=== PATIENT | female | born 1985 | race Hispanic/Latino ===

== ENCOUNTER 2019-01-04 17:58 | Emergency (ER) | payer MEDICAID ==
[2019-01-04 18:12] VITALS: BP 109/72
--- NOTE | 2019-01-04 18:12 | Event Note ---
ED Screening Note Date of service: 01/04/19 Time: 18:10 ED Screening Note: 33 y o female presents with left knee pain s/p fell down 3 steps while at work no loc no head injury This initial assessment/diagnostic orders/clinical plan/treatment(s) is/are subject to change based on patients health status, clinical progression and re- assessment by fellow clinical providers in the ED. Further treatment and workup at subsequent clinical providers discretion. Patient/guardian urged not to elope from the ED as their condition may be serious if not clinically assessed and managed. Initial orders include: xr knee
--- NOTE | 2019-01-04 19:07 | Emergency Department Report ---
ED Lower Extremity HPI - General Chief Complaint: Extremity Injury, Lower Stated Complaint: LT KNEE PAIN Time Seen by Provider: 01/04/19 18:10 Source: patient Mode of arrival: Ambulatory Limitations: No Limitations - History of Present Illness Initial Comments: 33-year-old female presents to the emergency room for complaint of left knee pain status post fall today. Patient states that about 521 today at work she had fallen and landed on her right knee with her left knee extended. Patient reports that she did not hit her head but does have a headache. Patient reports that she can't move her left knee bended. Patient reports a past medical history of left knee surgery in 2003 and had injured her knee in 2013. Patient currently takes no medications on a daily basis. Patient does have an allergy to codeine. -: This evening Time: 17:20 Injury: Knee: Left Type of Injury: hyperextension Place: work Severity scale (0 -10): 10 Improves With: nothing Worsens With: weight bearing, movement, palpation Context: fall Associated Symptoms: swelling, unable to bear weight - Related Data Previous Rx's Medication Instructions Recorded Last Taken Type Ibuprofen [Motrin 600 MG tab] 600 mg PO Q8H PRN #30 tablet 01/04/19 Unknown Rx Allergies Allergy/AdvReac Type Severity Reaction Status Date / Time codeine Allergy Anaphylaxis Verified 01/04/19 18:06 ED Review of Systems ROS: Stated complaint: LT KNEE PAIN Other details as noted in HPI Comment: All other systems reviewed and negative ED Past Medical Hx - Past Medical History Previous Medical History?: No - Surgical History Past Surgical History?: Yes Additional Surgical History: left knee/2013, ovarian cyst - Social History Smoking Status: Never Smoker Substance Use Type: Alcohol - Medications Home Medications: Home Medications Medication Instructions Recorded Confirmed Last Taken Type Ibuprofen [Motrin 600 MG tab] 600 mg PO Q8H PRN #30 tablet 01/04/19 Unknown Rx ED Physical Exam - General Limitations: No Limitations General appearance: alert, in no apparent distress - Head Head exam: Present: atraumatic, normocephalic - Eye Eye exam: Present: normal appearance - ENT ENT exam: Present: mucous membranes moist - Neck Neck exam: Present: normal inspection, full ROM - Expanded Lower Extremity Exam Left Hip exam: Present: normal inspection Upper Leg exam: Present: normal inspection Knee exam: Present: tenderness, swelling. Absent: full ROM Lower Leg exam: Present: normal inspection. Absent: tenderness, swelling Right Knee exam: Present: full ROM, tenderness, ecchymosis, erythema Ankle exam: Present: normal inspection Foot/Toe exam: Present: normal inspection Neuro vascular tendon exam: Present: no vascular compromise - Neurological Exam Neurological exam: Present: alert, oriented X3 - Psychiatric Psychiatric exam: Present: normal affect, normal mood - Skin Skin exam: Present: warm, dry, intact, normal color. Absent: rash ED Course Vital Signs 01/04/19 18:10 Temperature 98.3 F Pulse Rate 77 Respiratory 18 Rate Blood Pressure 109/72 O2 Sat by Pulse 99 Oximetry ED Lower Extremity MDM - Radiology Data Radiology results: report reviewed Patient: KOBE TREJO MR#: [id number] 7 : 1985 Acct:[id number] Age/Sex: 33 / F ADM Date: 01/04/19 Loc: ED Attending Dr: Ordering Physician: LEEANNE JONES Date of Service: 01/04/19 Procedure(s): XR knee 3V LT Accession Number(s): [id number] cc: LEEANNE JONES Fluoro Time In Minutes: LEFT KNEE 3 VIEWS INDICATION / CLINICAL INFORMATION: Left knee pain. COMPARISON: None available. FINDINGS: BONES and JOINT(S): No acute fracture or subluxation. No significant arthritis. SOFT TISSUES: No significant abnormality. ADDITIONAL FINDINGS: None. IMPRESSION: No acute abnormality of the left knee. Signer Name: Polo Stewart MD Signed: 01/04/2019 7:28 PM Workstation Name: [id number] Transcribed By: [place] Dictated By: Polo Stewart MD Electronically Authenticated By: Polo Stewart MD Signed Date/Time: 01/04/191927 DD/ 26 TD/TT: - Medical Decision Making 33-year-old female presents to the emergency room for complaint of left knee pain status post fall today. Patient states that about 521 today at work she had fallen and landed on her right knee with her left knee extended. Patient reports that she did not hit her head but does have a headache. Patient reports that she can't move her left knee bended. Patient reports a past medical history of left knee surgery in 2003 and had injured her knee in 2013. Patient currently takes no medications on a daily basis. Patient does have an allergy to codeine. Plain x-ray left knee shows no acute fracture or abnormalities. Patient will be referred to orthopedic provider for further evaluation and studies. Patient be placed in a knee immobilizer and crutches. Discharge home on ibuprofen. Critical care attestation.: If time is entered above; I have spent that time in minutes in the direct care of this critically ill patient, excluding procedure time. ED Disposition Clinical Impression: Left knee injury Qualifiers: Encounter type: initial encounter Qualified Code(s): S89.92XA - Unspecified injury of left lower leg, initial encounter Disposition: TO HOME OR SELFCARE Is pt being admited?: No Does the pt Need Aspirin: No Condition: Stable Instructions: Knee Immobilizer (ED) Additional Instructions: Please wear knee immobilizer and take pain medication until you follow up with orthopedic provider. Please use crutches to help ambulate. Prescriptions: Ibuprofen [Motrin 600 MG tab] 600 mg PO Q8H PRN #30 tablet PRN Reason: Pain , Severe (7-10) Referrals: KEVIN SALAS MD [Staff Physician] - 3-5 Days ALISA PRADO MD [Staff Physician] - 3-5 Days Forms: Work/School Release Form(ED)
--- NOTE | 2019-01-04 19:33 | XRay Report ---
LEFT KNEE 3 VIEWS INDICATION / CLINICAL INFORMATION: Left knee pain. COMPARISON: None available. FINDINGS: BONES and JOINT(S): No acute fracture or subluxation. No significant arthritis. SOFT TISSUES: No significant abnormality. ADDITIONAL FINDINGS: None. IMPRESSION: No acute abnormality of the left knee. Signer Name: Polo Stewart MD Signed: 01/04/2019 7:28 PM Workstation Name: [id number]
[2019-01-04] MEDS ORDERED: IBUPROFEN 600 MG TAB PO ONE (19:37)
== END 2019-01-04 20:37 | disposition home or self-care (01) ==
LOC: ED 17:58
DX: S89.92XA Unspecified injury of left lower leg, initial encounter (principal); Z98.890 Other specified postprocedural states; Z88.6 Allergy status to analgesic agent; X58.XXXA Exposure to other specified factors, initial encounter; Y93.9 Activity, unspecified; Y92.89 Other specified places as the place of occurrence of the external cause; Y99.8 Other external cause status